=== PATIENT | female | born 1955 | race Caucasian/White ===

== ENCOUNTER → 2016-06-04 | Day surgery (SDC) | payer MEDICARE, OTHER ==
[~2016-06-04] MED LIST: ACETAMINOPHEN325 MG PO; ADVAIR 250-501 EACH IH; ASPIR 8181 MG PO; BUSPIRONE HCL10 MG PO; CATAPRES0.1 MG PO; CEFTIN500 MG PO; COREG12.5 MG PO; COZAAR25 MG PO; COZAAR50 MG PO; DAILY VITE1 EACH PO; DICLOFENAC SODI50 MG PO; DOC-Q-LACE100 MG PO; EFFEXOR XR150 MG PO; GLUCOPHAGE1000 MG PO; HORIZANT600 MG PO; HYDRALAZINE HCL25 MG PO; HYDROCODON-ACE1 EAC4 PO; LANTUS100 UNIT/1 SQ; LASIX40 MG PO; LEVAQUIN750 MG PO; LINZESS145 MCG PO; LIPITOR80 MG PO; NICOTINE TRANSD21 MG TD; OMEPRAZOLE20 M1 PO; OMEPRAZOLE20 MG PO; PREDNISONE10 MG PO; PROAIR HFA8.5 GM IH; REQUIP0.5 MG PO; SPIRIVA18 MCG IH; SYNTHROID150 MCG PO; SYNTHROID175 MCG PO; TRAZODONE HCL150 MG PO; TRICOR145 MG PO; VITAMIN C1000 MG PO; VITAMIN D32000 UNI1 PO; ZYRTEC10 MG PO
== END | disposition home or self-care (01) ==
LOC: SDCH 10:39
DX: Z12.11 Encounter for screening for malignant neoplasm of colon (principal); E11.9 Type 2 diabetes mellitus without complications; I10 Essential (primary) hypertension; J44.9 Chronic obstructive pulmonary disease, unspecified; F17.210 Nicotine dependence, cigarettes, uncomplicated; I25.10 Atherosclerotic heart disease of native coronary artery without angina pectoris; E07.9 Disorder of thyroid, unspecified; M19.90 Unspecified osteoarthritis, unspecified site; M54.9 Dorsalgia, unspecified; G89.29 Other chronic pain; G43.909 Migraine, unspecified, not intractable, without status migrainosus; Z90.49 Acquired absence of other specified parts of digestive tract; Z86.010 Personal history of colon polyps; Z80.0 Family history of malignant neoplasm of digestive organs; Z88.2 Allergy status to sulfonamides
CPT/HCPCS: J2704

== ENCOUNTER 2016-09-25 11:23 | Emergency (ER) | payer MEDICARE, OTHER, BC | END 2016-09-25 12:42 | disposition home or self-care (01) | LOC: ER 11:23 | DX: A08.4 Viral intestinal infection, unspecified (principal); E10.9 Type 1 diabetes mellitus without complications; I10 Essential (primary) hypertension; J44.9 Chronic obstructive pulmonary disease, unspecified; F17.210 Nicotine dependence, cigarettes, uncomplicated; Z90.49 Acquired absence of other specified parts of digestive tract; Z88.0 Allergy status to penicillin; Z88.2 Allergy status to sulfonamides ==

== ENCOUNTER 2017-01-08 16:34 | Emergency (ER) | payer MEDICARE, OTHER | END 2017-01-08 18:31 | disposition home or self-care (01) | LOC: ER 16:34 | DX: M54.5 Low back pain (principal); I10 Essential (primary) hypertension; E11.9 Type 2 diabetes mellitus without complications; E78.00 Pure hypercholesterolemia, unspecified; Z79.82 Long term (current) use of aspirin; Z79.4 Long term (current) use of insulin; Z79.899 Other long term (current) drug therapy; Z88.0 Allergy status to penicillin; Z88.2 Allergy status to sulfonamides | CPT/HCPCS: 96372 ==